=== PATIENT | male | born 1965 | race African-American/Black ===

== ENCOUNTER 2024-09-23 13:17 | Inpatient (IN) | payer OTHER ==
[~2024-09-23] VITALS: Ht 193 cm; Wt 133.8 kg
[2024-09-23] MEDS: ONDANSETRON HCL INJ 2MG/ML 2ML 2 MG/ML VIAL IV STA (15:45)
[2024-09-23] MEDS: SODIUM CHLORIDE 0.9% 1000ML 1,000 ML IV STA (15:46)
[2024-09-23] MEDS: Morphine 4mg INJECTION 4 MG/ML INJ IV STA (15:46)
[2024-09-23] MEDS: VANCOMYCIN 1.25GM/250 ML (PEG) 250 ML IV ONE (15:49)
[2024-09-23] MEDS ORDERED: CLONIDINE HCL 0.1 MG TAB ONE (15:50)
[2024-09-23] MEDS: CLONIDINE HCL 0.1 MG TAB PO ONE (15:51)
[2024-09-23 16:09] LABS: BASOPHILS % 0.5 % (0.0-1.0); EOSINOPHILS % 2.4 % (0.0-6.0); LYMPHOCYTES % 39.9 % (18.0-39.1); MONOCYTES % 7.8 % (4.4-11.3); NEUTROPHILS % 48.9 % (38.7-80.0); RED CELL DISTRIBUTION WIDTH 12.4 % (11.7-14.4)
[2024-09-23 16:20] LABS: INR 0.88
[2024-09-23 16:32] LABS: EST GLOMERULAR FILTRATION RATE 100.0 ML/MIN (>=60)
[2024-09-23 16:39] VITALS: PULSE 78; RESP 18; TEMP 98.6
[2024-09-23] MEDS ORDERED: Morphine 4mg INJECTION 4 MG/ML INJ IV PRN (16:45)
[2024-09-23] MEDS ORDERED: ONDANSETRON HCL INJ 2MG/ML 2ML 2 MG/ML VIAL IV PRN (16:45)
[2024-09-23] MEDS ORDERED: IOPAMIDOL 370 MG/ML 100 ML INFUS..BTL INJ ONE (18:10)
[2024-09-23] MEDS ORDERED: MELATONIN 5 MG TABLET PO PRN (18:15)
[2024-09-23 18:28] LABS: CHOL/HDL RATIO 4.6 (3.9-4.7); LDL CHOLESTEROL 85.0 MG/DL (60-130)
[2024-09-23] MEDS: SODIUM CHLORIDE 0.9% 1000ML 1,000 ML IV SCH (18:43)
[2024-09-23] MEDS ORDERED: DEXTROSE 50% SYRINGE 50 ML IV PRN (19:00)
[2024-09-23 20:00] VITALS: BP 144/80; PULSE 96; RESP 18; TEMP 97.5; O2SAT 98
[2024-09-23] MEDS: INSULIN LISPRO 100 UNIT/1 ML 3ML VIAL SQ SCH (22:40)
[2024-09-23] MEDS: INSULIN GLARGINE 100 UNITS/ML VIAL SQ SCH (22:40)
[2024-09-24] VITALS (8 sets, daily range): BP systolic 122–167; BP diastolic 69–109; PULSE 80–96; RESP 18–20; TEMP 97.6–98.3; O2SAT 98–100
[2024-09-24] MEDS ORDERED: VANCOMYCIN 1.5 GM/300 ML (PEG) 300 ML IV SCH (03:00)
[2024-09-24] MEDS ORDERED: VANCOMYCIN 1.25GM/250 ML (PEG) 250 ML IV SCH (04:00)
[2024-09-24] MEDS ORDERED: VANCOMYCIN 2 GRAM/400 ML (PEG) 400 ML IV SCH (04:00)
[2024-09-24] MEDS: VANCOMYCIN 1.5 GM/300 ML (PEG) 300 ML IV SCH (04:45)
[2024-09-24 05:15] LABS: BASOPHILS % 0.4 % (0.0-1.0); EOSINOPHILS % 2.2 % (0.0-6.0); LYMPHOCYTES % 39.4 % (18.0-39.1); MONOCYTES % 8.2 % (4.4-11.3); NEUTROPHILS % 49.5 % (38.7-80.0); RED CELL DISTRIBUTION WIDTH 12.7 % (11.7-14.4)
[2024-09-24 05:51] LABS: EST GLOMERULAR FILTRATION RATE 104.0 ML/MIN (>=60)
[2024-09-24] MEDS ORDERED: PROPOFOL IV EMULSION 10 MG/ML 20 ML VIAL ONE (11:01)
[2024-09-24] MEDS ORDERED: MIDAZOLAM HCL 2 MG/2 ML VIAL ONE (11:01)
[2024-09-24] MEDS ORDERED: FENTANYL CITRATE/PF 100MCG/2 ML INJ ONE ×2 (11:01→11:41)
[2024-09-24] MEDS ORDERED: LIDOCAINE HCL 2% LOCAL INJ 5 ML SDV VIAL INJ ONE (11:01)
[2024-09-24] MEDS ORDERED: ONDANSETRON HCL INJ 2MG/ML 2ML 2 MG/ML VIAL ONE (11:17)
[2024-09-24] MEDS ORDERED: FAMOTIDINE 20 MG/2 ML VIAL IV ONE (11:17)
[2024-09-24] MEDS ORDERED: DEXAMETHASONE SOD PHOS INJ 4 MG/ML SDV ONE (11:17)
[2024-09-24] MEDS ORDERED: GLYCOPYRROLATE INJ 0.2 MG/ML VIAL ONE (11:17)
[2024-09-24] MEDS ORDERED: KETOROLAC TROMETHAMINE 30 MG/ML VIAL ONE (11:40)
[2024-09-24] MEDS ORDERED: HYDROCODONE/APAP 7.5MG-325MG 1 EA TAB PO PRN (12:00)
[2024-09-24] MEDS ORDERED: [UNRECOGNIZED DRUG - REMARK] (17:12)
[2024-09-24] MEDS: HYDRALAZINE HCL 20 MG/ML VIAL IV PRN (21:31)
[2024-09-25] VITALS (7 sets, daily range): BP systolic 126–169; BP diastolic 64–95; PULSE 90–109; RESP 18–21; TEMP 98–98.5; O2SAT 97–100
[2024-09-25 06:24] LABS: BASOPHILS % 0.3 % (0.0-1.0); EOSINOPHILS % 1.2 % (0.0-6.0); LYMPHOCYTES % 29.9 % (18.0-39.1); MONOCYTES % 6.8 % (4.4-11.3); NEUTROPHILS % 61.4 % (38.7-80.0); RED CELL DISTRIBUTION WIDTH 12.7 % (11.7-14.4)
[2024-09-25 07:14] LABS: EST GLOMERULAR FILTRATION RATE 102.0 ML/MIN (>=60)
[2024-09-25] MEDS: TELMISARTAN 40 MG TAB PO SCH (09:31)
[2024-09-25] MEDS ORDERED: LANCET 30G-GLU1 EACH (17:19)
[2024-09-25] MEDS ORDERED: BACTRIM DS TAB1 EACH PO (17:19)
[2024-09-25] MEDS ORDERED: ROSUVASTATIN CAL5 MG PO (17:19)
[2024-09-25] MEDS ORDERED: ACCU-CHEK GUID1 EAC2 SUBD (17:19)
[2024-09-25] MEDS ORDERED: MICARDIS20 MG PO (17:19)
[2024-09-25] MEDS ORDERED: INSULIN AS100 UNIT/3 SC (17:25)
[2024-09-25] MEDS ORDERED: LANTUS 3ML100 UNITS/ SC (17:25)
[2024-09-25] MEDS: CRESTOR 10MG PO SCH (21:42)
[2024-09-25] MEDS: INSULIN GLARGINE 100 UNITS/ML VIAL SQ SCH (21:50)
[2024-09-26] VITALS: BP 139/89; PULSE 92; RESP 18; TEMP 98.1; O2SAT 97
[2024-09-26 04:00] VITALS: BP 136/88; PULSE 96; RESP 20; TEMP 98.2; O2SAT 98
[2024-09-26 06:24] LABS: BASOPHILS % 0.3 % (0.0-1.0); EOSINOPHILS % 1.9 % (0.0-6.0); LYMPHOCYTES % 23.8 % (18.0-39.1); MONOCYTES % 7.7 % (4.4-11.3); NEUTROPHILS % 65.7 % (38.7-80.0); RED CELL DISTRIBUTION WIDTH 13.2 % (11.7-14.4)
[2024-09-26 06:57] LABS: EST GLOMERULAR FILTRATION RATE 102.0 ML/MIN (>=60)
[2024-09-26 09:02] VITALS: BP 141/88; PULSE 89; RESP 20; TEMP 98.1; O2SAT 100
[2024-09-26 10:02] VITALS: BP 141/88
== END 2024-09-26 10:50 | disposition home or self-care (01) | DRG 571 ==
LOC: ER 14:41 → ERHOLD 16:40 → MED/SURG 18:08 → MED/SURG2 09-24 11:30
PROVIDERS: ADMIT Family Medicine Adult Medicine; ATTEND Family Medicine Adult Medicine
PROC: 0JBM0ZZ Excision of Left Upper Leg Subcutaneous Tissue and Fascia, Open Approach (ICD-10-PCS; principal; 2024-09-24 11:08)
DX: L02.416 Cutaneous abscess of left lower limb (principal); I96 Gangrene, not elsewhere classified; L03.116 Cellulitis of left lower limb; E11.65 Type 2 diabetes mellitus with hyperglycemia; I10 Essential (primary) hypertension; R00.0 Tachycardia, unspecified; E78.5 Hyperlipidemia, unspecified; K21.9 Gastro-esophageal reflux disease without esophagitis; E66.9 Obesity, unspecified; Z72.0 Tobacco use; Z68.35 Body mass index [BMI] 35.0-35.9, adult
CPT/HCPCS: 36415; 71045; 74177; 80053; 80061; 80202; 82550; 82948; 83036; 84443; 84484; 85025; 85610; 85730; 87040; 87071; 87075; 87205; 93005; 99252; 99284; J0360; J1100; J1308; J1815; J1885; J2003; J2250; J2270; J2405; J2543; J7030; Q9967